=== PATIENT | female | born 1990 | race Caucasian/White ===

== ENCOUNTER 2016-06-29 19:58 | Emergency (ER) | payer OTHER ==
--- NOTE | 2016-06-29 21:00 | PROVIDER DOCUMENTATION ---
HPI-General Adult - General Chief Complaint: Hip Pain Stated Complaint: LT LEG PAIN, RASH Time Seen by Provider: 06/29/16 20:34 Source: patient Allergies/Adverse Reactions: Patient Allergies Allergy/AdvReac Type Severity Reaction Status Date / Time Penicillins Allergy Intermediate HIVES Verified 12/22/15 16:51 sulfamethoxazole Allergy HIVES Verified 06/29/16 22:45 [From Bactrim] trimethoprim [From Bactrim] Allergy HIVES Verified 06/29/16 22:45 Home Medications: Home Medication List Medication Instructions Recorded Confirmed Last Taken Type Albuterol Sulfate Inhaler 2 puff INH Q6H PRN PRN 07/03/13 06/29/16 08/11/14 07: 30 History [Ventolin Hfa] Citalopram [Celexa] 40 mg PO QHS 07/03/13 06/29/16 06/28/16 20:00 History Fluphenazine [Prolixin] 1 mg PO QHS 01/02/14 06/29/16 06/28/16 20:00 History Metoprolol [Lopressor] 50 mg PO DAILY 12/14/15 06/29/16 06/29/16 07:00 History Cholecalciferol (Vit D3) [Vitamin 1,000 unit PO BID 06/29/16 06/29/16 06/29/16 19:00 History D3] Clindamycin [Cleocin] 150 mg PO Q6HR #30 capsule 06/29/16 Unknown Rx LISINOpril [Prinivil] 20 mg PO QHS 06/29/16 06/29/16 06/28/16 20:00 History Ranitidine HCl [Zantac] 150 mg PO BID 06/29/16 06/29/16 06/29/16 19:00 History Tramadol [Ultram] 50 mg PO Q8HR #14 tablet 06/29/16 Unknown Rx - History of Present Illness -Gen Adult Nature of Presenting Problems: This pt presents to ED with c/o left hip pain x3 days that she describes as sharp when standing and aching when sitting. Denies any recent injury. She also reports a red rash on her right hip that started last night that she states is "burning and feels like it's going to bust." She has a hx of osteoporosis in which she had a right total hip replacement and fixation done on her left hip back in 2015. She also has a hx of cellulitis. Denies fever, chills, but reports body aches and "being really hot then cold." Denies any loss of bowel and bladder function. Location of Pain/Injury: reports: lower extremity (left and right hip), lower body (right and left hip). denies: head, face, mouth, neck, upper extremity, hand(s), abdomen, back, pelvis, genitalia, feet, upper body Pain Radiation: reports: legs (lower), legs (upper). denies: arm(s), back, buttocks, chest, epigastric, feet, groin, jaw, flank (L) (left groin pain radiating to her left upper thigh), LLQ, LUQ, neck, periumbilical, flank (R), RLQ, RUQ, shoulder(s), scrotal, sternal notch, suprapubic, urethral, vaginal Quality of Pain: reports: aching, burning (right hip), sharp. denies: cramping , dull, fullness, indigestion, pressure, stabbing, tearing, throbbing, tightness Severity: reports: moderate Onset/Duration: reports: 3 days ago Timing: reports: still present Context/Activities at Onset: reports: light activity, moderate activity, vigorous activity. denies: recent physical stress, recent trauma history, possible bad food, out of country travel, rest, sleep Modifying Factors: improves with: analgesics (does not improve with hydrocodone) , lying down, movement, other medication, palpation. worse with: antacids, breathing, cold/heat therapy, coughing, defecating, eating, exercise, immobilization, massage, rest, urinating, vomiting Associated Symptoms: reports: joint pain (left hip), muscle aches, trouble walking. denies: anxiety, arm pain, back/neck pain, chest pain, constipation, cough, diaphoresis, diarrhea, dizziness, EENT symptoms, fatigue, fever/chills, genitourinary problems, headaches, heartburn, loss of appetite, malaise, sinus congestion/drainage, nausea, rash, seizure, shortness of breath, sensory/motor loss, pain with inspiration, swelling/mass in abdomen, syncope, vomiting, weakness - Diabetes Related Context Context: denies: low blood sugar, high blood sugar, change in mental status, unresponsive, prior DKA hospitalization - Sickle Cell Pain Related Context Sickle Cell Pain Location: reports: none. denies: head, face, mouth, neck, chest, upper extremity, hand(s), abdomen, back, pelvis, genitalia, lower extremity, feet, upper body, lower body, generalized, other Review of Systems - Adult - REVIEW OF SYSTEMS - ADULT Constitutional: reports: see HPI, chills, night sweats. denies: fever, fatique , weight gain, weight loss Eyes: reports: see HPI. denies: discharge, dry eyes, decreased vision, blurred vision, double vision, eye pain, redness Ears, Nose, Mouth & Throat: reports: see HPI. denies: ear discharge, ear pain, hearing loss, tinnitus, sinus problem Cardiovascular: reports: see HPI. denies: chest pain, edema, irregular heart rate, orthopnea Respiratory: reports: see HPI. denies: chronic cough, cough, dyspnea on exertion, excessive sputum production Gastrointestinal: reports: see HPI. denies: abdominal pain, hematemesis, constipation, difficulty swallowing Genitourinary: reports: see HPI. denies: dysuria, discharge, frequency, frequent UTI's, hematuria Musculoskeletal: reports: see HPI, bone pain, joint pain, joint swelling. denies: back pain, frequent leg cramps, muscle aches, muscle weakness, neck pain Integumentary: reports: see HPI, other (erythema on the right hip). denies: hives, hair loss, itching, mole changes, nail changes Neurological: reports: see HPI. denies: ataxia, dizziness/vertigo, headache/ migraines, loss of balance, numbness, paresthesia, seizure, slurred speech Psychiatric: reports: see HPI. denies: anxiety, anti-depressant use, alcohol/ drug dependence, depression, panic attacks Endocrine: reports: see HPI. denies: change in skin pigment, excessive sweating , cold intolerance, heat intolerance, increased hunger Hematologic/Lymphatic: reports: see HPI. denies: easy bruising, lymphedema, prolonged bleeding Allergic/Immunologic: reports: see HPI. denies: allergic reactions, allergic rhinitis, asthma, food allergy, frequent infections, hay fever Past History - Adult - PAST MEDICAL HISTORY-ADULT Review of Records: reports: Old Records Reviewed, Nursing Assessment Review, Medications Reviewed, Social history reviewed & non-contributory. Major Childhood Illnesses: reports: denies history Cardiovascular: reports: arrhythmia (tachycardia), HTN Respiratory: reports: asthma Gastrointestinal: reports: denies history Obstetrical/Gynecological: reports: denies history LMP: 12/14/12 (PCOS) Genitourinary: reports: kidney stones, other (PCOS) Musculoskeletal: reports: intervertebral disc disease, other fractures, orthopedic injury, osteoporosis Neurological: reports: denies history Psychiatric: reports: anxiety, bipolar, depression Endocrine/Immune: reports: denies history Other Conditions: reports: denies history - PRIOR SURGERIES/PROCEDURES Surgical/Procedure History: reports: joint replacement (right total hip) - IMMUNIZATION STATUS Childhood Immunizations: See Nurse Assessment Flu Vaccine: See Nurse Assessment - FAMILY HISTORY Family History: reviewed, not pertinent - SOCIAL HISTORY Smoking: cigarettes, greater than 1 pack/day Provider spent 3-5 mins advising pt. on dangers of tobacco.: Discussed manners to quit use, and f/u contacts for add'l counseling. (discussed the need to stop smoking) Substance Use: none/never Alcohol Use Frequency: never Physical Exam-General - PHYSICAL EXAM-ADULT Initial Vital Signs Reviewed: Yes - CONSTITUTIONAL General Appearance: appears well, alert, no apparent distress, obese. negative : mild distress, moderate distress - EYES Eyes: PERRL/EOMI, pink conjunctivae. negative: EOM palsy, pale conjunctivae, photophobia, sclera injected - HEAD, EARS, NOSE, MOUTH & THROAT HENMT: normocephalic/atraumatic, moist mucous membranes, normal ENT inspection. negative: angioedema, dental decay, hearing deficit - NECK Neck: non-tender, full range of motion. negative: normal inspection, Brudzinski 's sign, C-spine tenderness, limited range of motion - RESPIRATORY Respiratory: chest non-tender, lungs clear, normal breath sounds, no pleuratic chest pain, no respiratory distress, no accessory muscle use. negative: decreased breath sounds, accessory muscle use, crackles, stridor, wheezing - CARDIOVASCULAR Cardiovascular: normal peripheral pulses, regular rate, rhythm, no edema, no gallop, no JVD. negative: no murmur, bradycardia, gallop/S4, friction rub - CHEST (BREASTS) Chest/Breast: deferred - GASTROINTESTINAL (ABDOMEN) Abdominal Exam: normal bowel sounds, non tender, no organomegaly, no pulsatile mass. negative: abdominal bruit, abnormal bowel sounds, hepatomegaly, spleenomegaly - GENITOURINARY Female Genitalia/Pelvic Exam: deferred Rectal Exam: deferred - LYMPHATIC Lymphatic: no adenopathy. negative: axilla node tender, cervical node tenderness, inguinal node tender, enlargement - MUSCULOSKELETAL Back Exam: normal inspection, no CVA tenderness, no vertebral tenderness. negative: CVA tenderness, decreased range of motion Extremity: normal range of motion, no pedal edema, no calf tenderness, normal capillary refill, swelling, tenderness, other (Bilateral hips) Peripheral Pulses: radial (R): 2+, radial (L): 2+, dorsalis-pedis (R): 2+, dorsalis-pedis (L): 2+ - SKIN Integumentary: normal color, normal turgor, warm/dry. negative: abrasion(s), blanching, cyanosis, diaphoresis - NEUROLOGIC Neurologic: visual effects editor II-XII nml as tested, grossly normal, no motor/sensory deficits . negative: abnormal cerebellar tests, abnormal visual effects editor II-XII, abnormal gait, aphasia, focal weakness - PSYCHIATRIC Psych/Mental Status: normal mood/affect, normal thought content, oriented x 3 Progress - PLAN OF CARE/RESULTS Progress/Plan/Lab Results: Discussed results and plan of care with patient. Patient agrees with plan and verbalizes understanding. Vital Signs Temp Pulse Resp BP Pulse Ox 06/29/16 20:24 98.1 F 110 H 16 165/94 100 Penicillins Allergy (Intermediate, Verified 12/22/15 16:51) HIVES sulfamethoxazole [From Bactrim] Allergy (Verified 06/29/16 22:45) HIVES trimethoprim [From Bactrim] Allergy (Verified 06/29/16 22:45) HIVES Albuterol Sulfate Inhaler [Ventolin Hfa] 2 puff INH Q6H PRN PRN 07/03/13 Citalopram [Celexa] 40 mg PO QHS 07/03/13 Fluphenazine [Prolixin] 1 mg PO QHS 01/02/14 Metoprolol [Lopressor] 50 mg PO DAILY 12/14/15 Cholecalciferol (Vit D3) [Vitamin D3] 1,000 unit PO BID 06/29/16 LISINOpril [Prinivil] 20 mg PO QHS 06/29/16 Ranitidine HCl [Zantac] 150 mg PO BID 06/29/16 I&O 06/28/16 06/29/16 06/30/16 06:59 06:59 06:59 Output Total 2029 Balance -2029 Laboratory 06/29/16 20:30 Urine Source CLEAN CATCH Urine Color YELLOW Urine Turbidity CLEAR Urine pH 6.0 Ur Specific [place] 1.025 Urine Protein TRACE A Ur Glucose (Stick) NEGATIVE Ur Ketones (Stick) NEGATIVE Urine Blood NEGATIVE Urine Nitrite NEGATIVE Urine Bilirubin NEGATIVE Urobilinogen Dipstick 3 A Urine Leukocytes TRACE A Urine WBC (Auto) <10 Urine RBC (Auto) <10 U Epithel Cells (Auto) >10 A Urine Bacteria (Auto) 2+ Orders Category Date Time Status XRAY PELVIS W/HIP 2-3VW LT [RAD] Stat Exams 06/29/16 21:38 Taken URINALYSIS [URINALYSIS] Stat Lab 06/29/16 20:30 Completed Clindamycin Med 06/29/16 23:13 Once 600 mg IM NOW ONE Hydrocodone/APAP 5 mg/325 mg [Sanders-5] Med 06/29/16 23:12 Discontinued 1 each PO NOW ONE Laboratory Tests 06/29/16 20:30 Urine Source CLEAN CATCH Urine Color YELLOW Urine Turbidity CLEAR Urine pH 6.0 Ur Specific [place] 1.025 Urine Protein TRACE A Ur Glucose (Stick) NEGATIVE Ur Ketones (Stick) NEGATIVE Urine Blood NEGATIVE Urine Nitrite NEGATIVE Urine Bilirubin NEGATIVE Urobilinogen Dipstick 3 A Urine Leukocytes TRACE A Urine WBC (Auto) <10 Urine RBC (Auto) <10 U Epithel Cells (Auto) >10 A Urine Bacteria (Auto) 2+ - XRAY 1 XRAY: Left XRAY Study: Pelvis, Hip XRAY Interpretation: No Fx (Noel) Departure - Departure Time of Disposition Order: 23:14 DIAGNOSIS: Cellulitis Qualifiers: Site of cellulitis: unspecified site Qualified Code(s): L03.90 - Cellulitis, unspecified Chronic pain Qualifiers: Chronic pain type: other chronic pain Qualified Code(s): G89.29 - Other chronic pain Disposition: HOME 01 Certified Medical Emergency: Emergent Condition: Stable Additional Instructions: Follow up with primary care physician Take medications as directed Return to ED for any concerns or worsening of symptoms ED Follow Up Instructions: You have been treated by a care provider in the Emergency Department. These instructions are being provided to you so you can have an understanding of how to care for yourself upon discharge. Upon discharge from the Emergency Department, you are responsible for making arrangements for follow-up care by a physician of your choice. Take all prescribed medications as directed. Return to the Emergency Department immediately for any new or worsening symptoms. You may call the Physician Referral phone number at [phone] to obtain a list of Physicians who are taking new patients. Prescriptions: Clindamycin [Cleocin] 150 mg PO Q6HR #30 capsule Tramadol [Ultram] 50 mg PO Q8HR #14 tablet Attestation - Physician/ TAWANNA Attestation Patient care was provided by Advanced Practice Provider:: Yes Advanced Practice Provider:: Krishna Cohen Advanced Practice Provider documentation review:: The Mid-level provider documentation, treatment plan and medical decision making was reviewed by the physician who agrees with all treatment and medical decision making by the MLP.
[2016-06-29 21:07] LABS: URINE MICRO REVIEW NEEDED? NO; URINE SOURCE CLEAN CATCH
[2016-06-29 21:14] LABS: BILIRUBIN URINE NEGATIVE (NEGATIVE); BLOOD URINE NEGATIVE (NEGATIVE); COLOR YELLOW; GLUCOSE URINE NEGATIVE (NEGATIVE); LEUKOCYTES URINE TRACE (NEGATIVE); NITRITE URINE NEGATIVE (NEGATIVE); PROTEIN URINE TRACE mg/dL (NEGATIVE); SP GRAVITY URINE 1.025; TURBIDITY URINE CLEAR (CLEAR); UROBILINOGEN URINE 3 mg/dL (NORMAL)
[2016-06-29 21:18] LABS: UR EPITHELIAL CELLS >10 /HPF (<10); URINE BACTERIA 2+ /HPF; URINE RBC <10 /HPF (<10); URINE WBC <10 /HPF (<10)
[2016-06-29] MEDS ORDERED: NORCO-5 PO ONE (23:12)
[2016-06-29] MEDS ORDERED: CLINDAMYCIN IM ONE (23:13)
--- NOTE | 2016-06-29 23:25 | Diag Imaging Result Document ---
PROCEDURE NAME: XRAY PELVIS W/HIP 2-3VW LT - 06/29/2016 PLAIN RADIOGRAPH OF THE PELVIS AND LEFT HIP FIVE VIEWS: COMPARISON: None available. FINDINGS: There has been a prior right hip arthroplasty and there is a medullary liliam on the left with evidence of a prior fracture at the proximal femur on the left that has healed. There is no evidence of acute fracture, dislocation, or intrinsic osseous lesion, otherwise. IMPRESSION: No evidence of acute osseous abnormality. Chronic changes as described.
[2016-06-30 00:14] VITALS: BP 138/82
== END 2016-06-30 00:13 | disposition home or self-care (01) ==
LOC: ED 19:58
DX: L03.90 Cellulitis, unspecified (principal); G89.29 Other chronic pain; M25.552 Pain in left hip; R21 Rash and other nonspecific skin eruption; M79.605 Pain in left leg; M79.1 Myalgia; R26.2 Difficulty in walking, not elsewhere classified; R68.83 Chills (without fever); R61 Generalized hyperhidrosis; M25.452 Effusion, left hip; L53.9 Erythematous condition, unspecified; M25.551 Pain in right hip; M81.0 Age-related osteoporosis without current pathological fracture; I10 Essential (primary) hypertension; J45.909 Unspecified asthma, uncomplicated; F41.9 Anxiety disorder, unspecified; F32.9 Major depressive disorder, single episode, unspecified; E66.9 Obesity, unspecified; F17.210 Nicotine dependence, cigarettes, uncomplicated; Z79.899 Other long term (current) drug therapy; Z71.6 Tobacco abuse counseling; Z96.641 Presence of right artificial hip joint; Z87.442 Personal history of urinary calculi
CPT/HCPCS: 81001; S0077

== ENCOUNTER 2016-08-26 23:58 | Inpatient (IN) ==
[2016-08-27 01:14] LABS: URINE MICRO REVIEW NEEDED? NO; URINE SOURCE CLEAN CATCH
[2016-08-27 01:15] LABS: BILIRUBIN URINE NEGATIVE (NEGATIVE); BLOOD URINE NEGATIVE (NEGATIVE); COLOR YELLOW; GLUCOSE URINE NEGATIVE (NEGATIVE); LEUKOCYTES URINE MODERATE (NEGATIVE); NITRITE URINE NEGATIVE (NEGATIVE); PROTEIN URINE NEGATIVE (NEGATIVE); SP GRAVITY URINE 1.017; TURBIDITY URINE TURBID (CLEAR); UROBILINOGEN URINE NORMAL (NORMAL)
[2016-08-27 01:17] LABS: UR EPITHELIAL CELLS <10 /HPF (<10); URINE BACTERIA 1+ /HPF; URINE CULTURE NEEDED? YES; URINE RBC <10 /HPF (<10); URINE WBC <10 /HPF (<10)
[2016-08-27] MEDS ORDERED: ZOFRAN IV ONE ×2 (01:18→03:13)
[2016-08-27] MEDS ORDERED: DILAUDID IV ONE ×2 (01:18→03:13)
[2016-08-27] MEDS ORDERED: TORADOL IV ONE (01:18)
[2016-08-27] MEDS ORDERED: NS 500 ML IV ONE (01:18)
[2016-08-27 01:38] LABS: MANUAL DIFF NEEDED? NO
[2016-08-27 01:40] LABS: BASO% 0.3 % (0.0-0.8); EOS# 0.13 X1000 (0.0-0.7); EOS% 0.8 % (0.0-10.0); HEMATOCRIT 40.6 % (37.0-47.0); HEMOGLOBIN 13.2 g/dL (12.0-16.0); IMM GRAN# 0.09 X1000 (0.0-0.04); IMM GRAN% 0.6 % (0.0-0.5); LYMPH# 2.09 X1000 (1.2-3.4); LYMPH% 13.4 % (20.5-51.1); MCH 28.2 PG (27-31); MCHC 32.5 g/dL (33-37); MCV 86.8 FL (81-99); MONO# 1.33 X1000 (0.11-0.59); MONO% 8.5 % (1.7-9.3); MPV 9.8 FL (7.4-10.4); NEUT% 76.4 % (42.2-75.2); PLT 359 X1000 (130-400); RBC 4.68 XMIL (4.2-5.4)
[2016-08-27 01:59] LABS: ALBUMIN 3.9 g/dL (3.5-5.0); TOTAL BILIRUBIN 0.11 mg/dL (0.20-1.00); TOTAL PROTEIN 6.7 g/dL (6.3-8.3)
--- NOTE | 2016-08-27 03:15 | PROVIDER DOCUMENTATION ---
This chart was entered by Keny Zamora Scribe, acting as scribe for Jose Hale MD. HPI-Abdominal Pain/GI Problem - General Chief Complaint: Flank Pain Stated Complaint: RT SIDE/BACK PAIN, NAUSEA Time Seen by Provider: 08/27/16 01:09 Source: patient Allergies/Adverse Reactions: Patient Allergies Allergy/AdvReac Type Severity Reaction Status Date / Time Penicillins Allergy Intermediate HIVES Verified 08/27/16 00:29 sulfamethoxazole Allergy HIVES Verified 08/27/16 00:29 [From Bactrim] trimethoprim [From Bactrim] Allergy HIVES Verified 08/27/16 00:29 Home Medications: Home Medication List Medication Instructions Recorded Confirmed Last Taken Type Albuterol Sulfate Inhaler 2 puff INH Q6H PRN PRN 07/03/13 08/27/16 06/12/15 08: 00 History [Ventolin Hfa] Citalopram [Celexa] 40 mg PO QHS 07/03/13 08/27/16 08/26/16 21:00 History Fluphenazine [Prolixin] 1 mg PO QHS 01/02/14 08/27/16 08/26/16 20:00 History Metoprolol [Lopressor] 50 mg PO DAILY 12/14/15 08/27/16 08/26/16 08:00 History Cholecalciferol (Vit D3) [Vitamin 1,000 unit PO BID 06/29/16 08/27/16 08/26/16 21:00 History D3] LISINOpril [Prinivil] 20 mg PO QHS 06/29/16 08/27/16 08/26/16 21:00 History Ranitidine HCl [Zantac] 150 mg PO BID 06/29/16 08/27/16 08/26/16 21:00 History - History of Present Illness-ABD Nature of Presenting Problems: Pt is a 26 yom who presents to ER with CC of RUQ pain that started this am and has gradually gotten worse. Pt also reports nausea without vomiting, the pain wraps around her right flank, and is worsened when she twists her body. Pt states that she has tried tylenol for the pain and has had mild to no relief, but states that she has had significant relief with a heating pad. Pt says that she has had renal stones before and that this pain resembles that of a renal stone, but the pain is too high up. Abdominal Pain Onset Location: reports: flank (right) Pain Radiation: reports: RUQ Quality of Pain: reports: aching, cramping Severity in ED: reports: moderate Onset/Duration: reports: this morning Timing: reports: still present, getting worse Associated Symptoms: reports: nausea, swelling/mass in abdomen (pt states that she feels bloated). denies: anxiety, arm pain, back/neck pain, chest pain, diaphoresis, diarrhea, fatigue, fever/chills, headaches, heartburn, joint pain, vomiting, weakness, trouble walking Review of Systems - Adult - REVIEW OF SYSTEMS - ADULT Constitutional: denies: chills, fever, fatique, night sweats, weight gain, weight loss Eyes: reports: no symptoms reported Ears, Nose, Mouth & Throat: reports: no symptoms reported Cardiovascular: denies: chest pain, irregular heart rate, palpitations, poor circulation, syncope Respiratory: denies: chronic cough, cough, dyspnea on exertion, excessive sputum production, shortness of breath, wheezing Gastrointestinal: reports: abdominal pain, nausea. denies: hematemesis, constipation, diarrhea, difficulty swallowing, frequent heartburn, poor appetite , rectal bleeding, vomiting Genitourinary: reports: no symptoms reported Musculoskeletal: reports: no symptoms reported Integumentary: reports: no symptoms reported Neurological: reports: no symptoms reported Psychiatric: reports: no symptoms reported Endocrine: reports: no symptoms reported Hematologic/Lymphatic: reports: no symptoms reported Allergic/Immunologic: reports: no symptoms reported All Other Systems: Reviewed and Negative Past History - Adult - PAST MEDICAL HISTORY-ADULT Review of Records: reports: Nursing Assessment Review, Medications Reviewed Cardiovascular: reports: arrhythmia (tachycardia), HTN Respiratory: reports: asthma Genitourinary: reports: kidney stones, other (PCOS) Musculoskeletal: reports: intervertebral disc disease, other fractures, orthopedic injury, osteoporosis Psychiatric: reports: anxiety, bipolar, depression - PRIOR SURGERIES/PROCEDURES Surgical/Procedure History: reports: joint replacement (right total hip) - IMMUNIZATION STATUS Childhood Immunizations: See Nurse Assessment Flu Vaccine: See Nurse Assessment - FAMILY HISTORY Family History: reviewed, not pertinent Physical Exam-General - PHYSICAL EXAM-ADULT Initial Vital Signs Reviewed: Yes - CONSTITUTIONAL General Appearance: appears well, alert, moderate distress, obese, anxious - EYES Eyes: PERRL/EOMI, pink conjunctivae - HEAD, EARS, NOSE, MOUTH & THROAT HENMT: normocephalic/atraumatic, moist mucous membranes, normal ENT inspection, TMs normal, pharynx normal. negative: pharyngeal erythema, tonsillar exudate, TM abnormal - NECK Neck: non-tender, full range of motion, supple, normal inspection. negative: C- spine tenderness, limited range of motion, lymphadenopathy - RESPIRATORY Respiratory: chest non-tender, lungs clear, normal breath sounds, no pleuratic chest pain, no respiratory distress, no accessory muscle use. negative: respiratory distress, decreased breath sounds, accessory muscle use, wheezing - CARDIOVASCULAR Cardiovascular: normal peripheral pulses, regular rate, rhythm, other ( hypertensive). negative: bradycardia, tachycardia, irregularly irregular - GASTROINTESTINAL (ABDOMEN) Abdominal Exam: normal bowel sounds, soft, no organomegaly, no pulsatile mass, tenderness (RUQ). negative: non tender, distended - MUSCULOSKELETAL Back Exam: normal inspection, no CVA tenderness, no vertebral tenderness. negative: CVA tenderness, decreased range of motion, ecchymosis, muscle spasm, swelling, vertebral tenderness Extremity: normal range of motion, non-tender, normal gait, normal inspection, no pedal edema, no calf tenderness, normal capillary refill. negative: deformity, erythema, inflammation, swelling, tenderness - SKIN Integumentary: normal color, normal turgor, warm/dry. negative: abrasion(s), diaphoresis, ecchymosis, erythema, laceration(s), swelling, tenderness, warm - NEUROLOGIC Neurologic: leaf fat scraper II-XII nml as tested, grossly normal, no motor/sensory deficits . negative: facial droop, focal weakness, motor weakness, sensory deficit - PSYCHIATRIC Psych/Mental Status: normal thought content, normal thought process, oriented x 3, disheveled. negative: normal mood/affect Progress - PLAN OF CARE/RESULTS Progress/Plan/Lab Results: Vital Signs - 8 hr 08/27/16 00:22 Temperature 98.1 F Pulse Rate 100 H Respiratory Rate 20 Blood Pressure 157/128 O2 Sat by Pulse Oximetry 95 Bedside Urine ED: Urine Bedside Start: 08/27/16 00:26 Freq: ORDERED Status: Active Activity Type Activity Date Activity User E-Sign Co-Sign Detail Recorded Client Recorded Date Recorded By Document 08/27/16 01:01 [id number] 08/27/16 01:02 [id number] 08/27/16 01:01 Point of Care [Bedside Point of Care] -Lot # [id number] - Results Negative -Control Line Visible? Yes Laboratory Results - last 24 hr 08/27/16 00:55 Urine Source CLEAN CATCH Urine Color YELLOW Urine Turbidity TURBID Urine pH 7.0 Ur Specific [place] 1.017 Urine Protein NEGATIVE Ur Glucose (Stick) NEGATIVE Ur Ketones (Stick) NEGATIVE Urine Blood NEGATIVE Urine Nitrite NEGATIVE Urine Bilirubin NEGATIVE Urobilinogen Dipstick NORMAL Urine Leukocytes MODERATE A Urine WBC (Auto) <10 Urine RBC (Auto) <10 U Epithel Cells (Auto) <10 Urine Bacteria (Auto) 1+ Orders Category Date Time Status ED: Urine Bedside ORDERED Care 08/27/16 00:26 Active UA Reflex [URINALYSIS W/POSS RFLX CULT] [URINALYSIS] Lab 08/27/16 00:55 Completed Stat Result Diagrams: 08/27/16 01:25 08/27/16 01:25 Departure - Departure Time of Disposition Decision: 03:14 DIAGNOSIS: Biliary colic Pancreatitis Qualifiers: Chronicity: acute Pancreatitis type: biliary Acute pancreatitis complication: no infection or necrosis Qualified Code(s): K85.10 - Biliary acute pancreatitis without necrosis or infection Disposition: ADMITTED INPATIENT 09 Certified Medical Emergency: Emergent Condition: Fair Referrals and Follow-Ups: None,PCP [Primary Care Provider] - - Critical Care Note This patient required my direct & personal management of CC.: No This chart was documented by the indicated scribe, (Keny Zamora Scribe) and accurately reflects the services I performed and decisions made by me, Jose Schulte MD, as attested by the provider's signature.
[2016-08-27] MEDS ORDERED: APRESOLINE IV ONE (04:15)
--- NOTE | 2016-08-27 05:13 | HISTORY AND PHYSICAL ---
CHIEF COMPLAINT: Abdominal pain. HISTORY OF PRESENTING ILLNESS: A 26-year-old female with a history of asthma and hypertension who had presented to the emergency department with a 1-day history of having abdominal pain. She states the pain was more in the right upper quadrant, radiating to her right flank. She states that she was nauseated. Patient was evaluated in the ER and due to her persistent pain, it was thought we would place her for observation for further evaluation and management. At the time of my examination, she had denied any headaches, visual changes, fevers, chills, chest pain, shortness of breath, hemoptysis, melena, or weight changes but complained of abdominal/flank pain on her right side. PAST MEDICAL HISTORY: Includes polycystic ovarian syndrome, asthma, Serafin's disease, hypertension, history of necrotizing fasciitis. PAST SURGICAL HISTORY: Right hip replacement, left tibial fixation, kidney stone extractions. ALLERGIES: Penicillin and Bactrim. CURRENT MEDICATIONS: Listed in the MAR. SOCIAL HISTORY: Ten pack year history of smoking. Admits to social alcohol use. Denies any illicit drug use. FAMILY HISTORY: Positive for coronary artery disease in father. REVIEW OF SYSTEMS: Twelve point review of systems as listed in the HPI. Other systems negative. PHYSICAL EXAMINATION: GENERAL: Cooperative, friendly, obese female. She is resting comfortably. VITAL SIGNS: Temperature 98.1 degrees, pulse 100, respirations 20, blood pressure 157/128. She is saturating 95% on room air. HEENT: Atraumatic, normocephalic. Extraocular movements intact. PERRLA. NECK: No masses. CHEST: Clear to auscultation. CARDIOVASCULAR: Regular rate and rhythm. ABDOMEN: Soft. Right upper quadrant tenderness. EXTREMITIES: No edema. NEUROLOGIC: She is awake, alert, oriented x3. : No bladder distention. SKIN: Warm. LABORATORIES AND STUDIES: UA shows moderate leukocytes and +1 bacteria. Sodium 143, potassium 4, chloride 102, CO2 is 27, BUN is 17, creatinine is 1.1, glucose is 97. WBCs 15.63, hemoglobin 13.2, hematocrit 40.6, platelets 359,000. ASSESSMENT: A 26-year-old, obese female who presented to the emergency department with a 1-day history of having abdominal pain. Due to her persistent pain, it was thought that she would need hospitalization for further management. 1. Right upper quadrant/left flank pain. 2. Asthma. 3. Hypertension. PLAN: 1. We will admit patient for observation. 2. We will schedule patient for an ultrasound of the abdomen at the right upper quadrant. 3. We will continue with Everett hernandez. 4. We will monitor blood pressure and resume antihypertensive agents. 5. Put patient on DVT prophylaxis with GREG figueroa. 6. We will continue to follow and reassess. cc: Milo Marie MD
--- NOTE | 2016-08-27 05:28 | HISTORY AND PHYSICAL ---
ADDENDUM: ASSESSMENT AND PLAN: Suspected urinary tract infection. We will check urine cultures and start patient on intravenous antibiotics. cc: Milo Marie MD
[2016-08-27] MEDS: NS 1,000 ML IV SCH ×2 (06:08→16:54)
[2016-08-27] MEDS: LEVAQUIN 500 MG/D5W 500 MG/100 ML IVPB IV SCH (06:08)
[2016-08-27] MEDS: DILAUDID IV PRN ×6 (06:16→22:47)
[2016-08-27] MEDS ORDERED: ZANTAC PO SCH (09:00)
--- NOTE | 2016-08-27 09:16 | Diag Imaging Result Document ---
PROCEDURE NAME: CT ABD/PELVIS W/ IV CONT ONLY - 08/27/2016 CT OF THE ABDOMEN WITH INTRAVENOUS CONTRAST AND CLARITY: The current study is compared with that of 12/22/2015. FINDINGS: The opacities which were demonstrated previously in the right middle lobe have resolved. There is stable pleural thickening in the left lateral costophrenic sulcus. The appearance of the pancreas has not changed significantly since the previous study. The liver, spleen and adrenal glands are also stable in appearance. The gallbladder is contracted. There are apparent caliceal stones in both kidneys. While this is a contrast examination and contrast in the calices may obscure stones, there were multiple calyceal stones at the time of the noncontrast study of 07/20/2014. There is a fat-containing umbilical hernia. There is inflammatory change surrounding this collection. The possibility of some fat necrosis cannot be excluded. There is a larger quantity of herniated peritoneal fat than was the case at the time of the previous study. There is some gas and stool in the colon. The small bowel is not distended. There is no evidence of significant adenopathy. CT OF THE PELVIS WITH INTRAVENOUS CONTRAST: FINDINGS: There is no evidence of appendicitis. There has been internal fixation of the left femur and a total hip arthroplasty on the right. There is evidence of previous fracture of the ischiopubic ramus on the left. There are no masses or abnormal fluid collections. Given the beam- hardening artifact from the orthopedic hardware, there is no evidence of a definite abnormality in the urinary bladder. There is what appears to be postsurgical change in the right groin. IMPRESSION: No evidence of acute pancreatitis. Umbilical fat herniation with apparent fat necrosis. The hernia and the inflammatory change in the herniated fat both appear to be worse than on 12/22/2015.
[2016-08-27] MEDS: LOPRESSOR PO SCH (09:20)
--- NOTE | 2016-08-27 10:44 | Diag Imaging Result Document ---
PROCEDURE NAME: US ABDOMEN-COMPLETE - 08/27/2016 ULTRASOUND ABDOMEN COMPLETE, 08/27/2016: COMPARISON: CT abdomen and pelvis, 08/27/2016. FINDINGS: There is a tiny polyp in the gallbladder measuring 4 mm. The liver, pancreas and spleen are normal. There are small shadowing nonobstructing renal stones bilaterally stable from prior CTs. No hydronephrosis. Renal sizes are normal. No abnormal fluid collections. The common bile duct measures 5 mm. Aorta, IVC, and main portal vein are patent. IMPRESSION: Tiny polyp in the gallbladder. Small bilateral renal stones. No change from prior exams.
[2016-08-27] MEDS ORDERED: TORADOL IV SCH (13:45)
[2016-08-27] MEDS ORDERED: PROTONIX IV SCH (13:45)
[2016-08-27] MEDS: OFIRMEV 1000 MG/ISOTONIC SOLN 1,000 MG/100 ML BOTTLE IV SCH ×2 (15:33→22:37)
--- NOTE | 2016-08-27 21:06 | CONSULTATION ---
DATE OF CONSULTATION: 08/27/2016 REFERRING PHYSICIAN: Ken Tapia M.D. PRIMARY CARE PROVIDER: None. INDICATIONS FOR CONSULTATION.: 1. Right upper quadrant pain. 2. Nausea. 3. Heartburn. 4. History of peptic ulcer disease. HISTORY OF PRESENT ILLNESS: The patient is a 26-year-old, white female, who presented to the emergency room for evaluation of abdominal pain. She describes severe right upper quadrant pain that radiated into her right flank. It was associated with nausea but no vomiting. She had severe abdominal pain that reached a point of 8 to 9/10. Because of the persistent abdominal pain, she was admitted for further evaluation. She notes a history of gastric ulcers approximately 9 years ago on endoscopy. She has not been followed by GI since her ulcers were found 9 years ago. She does have [place]'s disease and is followed at [facility] in the Endocrine Department. She denies fever, chills, chest pain, vomiting, melena, hematochezia, and change in bowel habits. Historically, she has constipation but notes an occasional episode of diarrhea. Her stools tend to go back and forth between constipation and diarrhea. PAST MEDICAL HISTORY: 1. Polycystic ovarian syndrome. 2. Asthma. 3. Serafin's syndrome. 4. Hypertension. 5. Necrotizing fasciitis. 6. Central morbid obesity. 7. Arthritis. 8. Kidney stones. 9. Umbilical hernia. 10. Multiple fractures thought secondary to her Serafin's disease. PAST SURGICAL HISTORY: 1. Right hip replacement. 2. Left tibial fixation. 3. Left hip replacement. 4. Kidney stone extraction. MEDICATION ALLERGIES: 1. Penicillin. 2. Bactrim. HOME MEDICATIONS: 1. Zantac. 2. Lopressor. 3. Prinivil. 4. Prolixin. 5. Celexa. 6. Vitamin D. 7. Ventolin inhaler. SOCIAL HISTORY: The patient has a [id number] smoking history. She uses alcohol on a social basis. She denies illicit drug use. FAMILY HISTORY: Positive for coronary artery disease. There is no history of gastric or colon cancer. REVIEW OF SYSTEMS: Remarkable for right upper quadrant and right flank pain, heartburn,, nausea and a history of peptic ulcer disease. PHYSICAL EXAMINATION: General: On examination, she is a morbidly obese white female in no acute distress. Vital Signs: Blood pressure is 121/68, pulse 67, respirations 17, temperature of 98.1 degrees. HEENT: Negative for jaundice. Her conjunctivae are normal. Her oropharyngeal mucosa. membranes appear normal. Pulmonary Examination: Lungs are clear to auscultation with normal respiratory effort. Cardiovascular Examination: Reveals regular rate and rhythm with no murmurs, gallops, or rubs. Abdominal Examination: Reveals normoactive bowel sounds. The abdomen is soft with moderate right upper quadrant tenderness but no rebound or guarding. There is central adiposity. Extremities: Bilaterally are negative for cyanosis, clubbing, or edema. Neurologic Examination: She is alert and oriented x3 with appropriate mood, affect, and memory. Pelvis: Examination of the pelvis was limited by her orthopedic hardware. She has an internal fixation of the left femur as well as a right total hip arthroplasty. She also has a previous fracture of the ischial pubic ramus on the left. OBJECTIVE DATA: Remarkable for a urinalysis with leukocytosis and bacteremia consistent with urinary tract infection. Her hemoglobin is 13.2 with hematocrit of 40.6, and a white count of 15.63. She has 359,000 platelets. Sodium is 143, potassium 4.0, chloride 102, CO2 27, BUN 17, creatinine 1.1 with a glucose of 97. Calcium is 9.0, total bilirubin 0.11, AST 20, ALT 19, alkaline phosphatase 73, total protein 6.7, albumin 3.9, and a lipase of 93. CT scan was personally reviewed. The official interpretation reveals no evidence of acute pancreatitis. She does have an umbilical hernia with fat herniation and fat necrosis. The hernia and inflammatory changes appear to be worse than on a previous CT scan. She had multiple kidney stones present. The gallbladder was contracted but there were no masses or evidence of acute cholecystitis. There is stable pleural thickening at the left lateral costophrenic sulcus with stool and gas in the colon. The small bowel was not distended. There was no evidence of significant lymphadenopathy. IMPRESSION: 1. Right upper quadrant pain. 2. Nausea. 3. Heartburn. 4. History of peptic ulcer disease. 5. Urinary tract infection with leukocytosis. 6. Serafin's disease. RECOMMENDATIONS: 1. The patient continues to have nausea but no vomiting as well as right upper quadrant pain. Her abdominal ultrasound revealed a tiny gallbladder polyp but no other acute findings to account for her symptoms. There are also bilateral kidney stones which again did not account for her symptoms. Therefore, I recommend that she undergo an EGD to assess for recurrent peptic ulcer disease. 2. I would also check a HIDA scan to assess for chronic cholecystitis. 3. I would continue Protonix but increase to q.12 hours. 4. Consent was obtained. All questions were answered. 5. Because the patient has asthma as well as history of peptic ulcer disease, I will discontinue the IV Toradol. 6. Additional recommendations to follow based on her clinical course and our endoscopic findings. cc: MD Ken Agee MD MTDJuliet
[2016-08-27] MEDS: CELEXA PO SCH (22:39)
[2016-08-27] MEDS: PRINIVIL PO SCH (22:40)
[2016-08-28] MEDS: DILAUDID IV PRN ×4 (01:49→13:58)
[2016-08-28] MEDS: OFIRMEV 1000 MG/ISOTONIC SOLN 1,000 MG/100 ML BOTTLE IV SCH ×4 (01:51→19:49)
[2016-08-28] MEDS: PROLIXIN PO SCH ×3 (01:57→21:09)
[2016-08-28] MEDS: NS 1,000 ML IV SCH ×4 (01:58→22:24)
[2016-08-28] MEDS: PROTONIX IV SCH ×2 (01:59→15:07)
[2016-08-28] MEDS: SODIUM CHLORIDE 0.9% INJ SCH ×2 (02:00→15:07)
[2016-08-28] MEDS: LEVAQUIN 500 MG/D5W 500 MG/100 ML IVPB IV SCH (05:48)
[2016-08-28 06:33] LABS: MANUAL DIFF NEEDED? NO
[2016-08-28 06:56] LABS: AGAP 12; BUN 16 mg/dL (8-22); CALCIUM 8.7 mg/dL (8.8-10.2); CHLORIDE 108 mmol/L (98-107); COSMO 286; POTASSIUM 3.9 mmol/L (3.5-5.1); SODIUM 143 mmol/L (136-145); TCO2 23 mmol/L (25-35)
[2016-08-28 06:59] LABS: BASO% 0.3 % (0.0-0.8); EOS# 0.11 X1000 (0.0-0.7); EOS% 0.9 % (0.0-10.0); HEMATOCRIT 37.7 % (37.0-47.0); HEMOGLOBIN 11.7 g/dL (12.0-16.0); IMM GRAN# 0.05 X1000 (0.0-0.04); IMM GRAN% 0.4 % (0.0-0.5); LYMPH% 16.3 % (20.5-51.1); MCH 27.3 PG (27-31); MCV 88.1 FL (81-99); MONO# 0.91 X1000 (0.11-0.59); MONO% 7.4 % (1.7-9.3); MPV 10.2 FL (7.4-10.4); NEUT% 74.7 % (42.2-75.2); PLT 317 X1000 (130-400); RBC 4.28 XMIL (4.2-5.4)
[2016-08-28] MEDS ORDERED: DIPRIVAN 1% ONE (09:24)
[2016-08-28] MEDS ORDERED: VERSED ONE (09:24)
[2016-08-28] MEDS: LOPRESSOR PO SCH (10:12)
[2016-08-28] MEDS ORDERED: LR 1,000 ML ONE (10:31)
[2016-08-28] MEDS ORDERED: EXTENSION SET 32 IN 4522 ONE (10:31)
[2016-08-28] MEDS ORDERED: ANESTHESIA PB SET 88 IN 5742 ONE (10:31)
--- NOTE | 2016-08-28 12:36 | OPERATIVE NOTE ---
PROCEDURE DATE: 08/28/2016 REFERRING PHYSICIAN: Ken Tapia M.D. INDICATIONS FOR PROCEDURE: 1. Right upper quadrant pain. 2. Nausea. 3. Heartburn. 4. History of peptic ulcer disease. PROCEDURE PERFORMED: Esophagogastroduodenoscopy with biopsy. CONSENT: Informed consent was obtained from the patient prior to the procedure. The risks, benefits, and alternatives were discussed. MEDICATION: The patient received monitored anesthesia care. PERFORMING PHYSICIAN: Beverley Vu M.D. ASSISTANTS: 1. ST. Cynthia 2. Leilani Hu RN. 3. Maryam Ibanez CRNA. 4. Edwin Hardy M.D. (Anesthesia). COMPLICATIONS: There were no complications. ESTIMATED BLOOD LOSS: 1 to 2 mL. SPECIMENS REMOVED: 1. Duodenal biopsy. 2. Gastric biopsy. FINDINGS: After sedation was achieved, the upper endoscope was inserted to the 2nd portion of the duodenum. The hypopharynx and tubular esophagus appeared normal to the distal esophagus. There were no varices. There was no Marks mucosa. The GE junction appeared irregular at 40 cm. There was superficial ulceration with streaking erosions, consistent with grade B erosive esophagitis. In the gastric lumen, there was greater than 200 mL of retained gastric fluid. There was erosive gastritis visualized after evacuation of the fluid. In the fundus, there was gastritis but no other findings. The pylorus was patent. Please note that there was active bile reflux throughout the entire procedure. The pylorus was inflamed but otherwise patent. In the duodenal bulb and 2nd portion of the duodenum, there was duodenitis. After the exam was complete, biopsies were taken from the duodenal and gastric mucosa. The lumen was decompressed and the scope was removed without incident. IMPRESSION: 1. Grade B erosive esophagitis. 2. Gastric stasis. 3. Erosive gastritis. 4. Active bile reflux. 5. Duodenitis. RECOMMENDATIONS: 1. Await biopsy results. 2. Continue Protonix 40 mg IV q.12 hours. 3. Add Carafate 1 g 4 times a day for 12 weeks and then stop. 4. Check a HIDA scan as our exam today did not account for right upper quadrant pain. 5. In addition, I would check a gastric emptying study as she has evidence of gastric stasis. 6. She continues to have right upper quadrant pain and constipation. I will give her trial of Bentyl 10 mg 4 times a day as I suspect a component of irritable bowel syndrome. 7. If her pain continues, we can consider performing a colonoscopy which can be done as an outpatient. 8. We will have the patient return to clinic in 4 weeks to assess interval progress. cc: MD Ken Agee MD MTDD
--- NOTE | 2016-08-28 15:34 | PROGRESS NOTE ---
DATE: 08/28/2016 Today Ms. Patel refers to be doing fine. She just finished her procedure, an esophagogastroduodenoscopy without any complications. OBJECTIVE: Vital signs: Blood pressure is 161/98, pulse of 75, respirations 20 , temperature is 97.8 degrees. General Exam: Ms. Patel is a 36-year-old morbidly obese, female, with a BMI of 50.4. She is in bed, no seemingly distress. HEENT: Mucosa is pink and moist. Anicteric. Acyanotic. Neck: Supple. Chest: Clear. Cardiovascular: Regular rate and rhythm. Abdomen: Soft. There is a right side paraumbilical hernia which is easily reducible. There is also some tenderness to the right upper quadrant. Extremities: No pedal edema. CUSTOMER SERVICE REP: Patient is alert and oriented x4. There is no focal neurological deficit. LABORATORY DATA: WBC is 12.28, hemoglobin is 11.7, platelet count of 317,000. Chemistries reviewed, completely normal. EGD shows grade B erosive esophagitis, gastric stasis, erosive gastritis, active bile reflux. ASSESSMENT: 1. Right upper quadrant pain. Etiology is still unclear. Patient does have an ultrasound which reveals gallbladder polyp. Will consult Surgery to review the patient and make some recommendations and see if that is the cause of the pain. 2. Gastritis with duodenitis on EGD. Will follow up with further recommendations from GI. 3. Moderate constipation on CT scan. We will start the patient on MiraLAX and also I would discontinue the patient's narcotics since I think this could be potentially causing some of her problems. 4. Morbid obesity. Noted. Patient has been upset that her narcotics have been changed. I think we have to discontinue it all together due to the constipation and the fact that her studies have been unremarkable for any acute pathology needing opioids. cc: Femi Valero MD [facility]
[2016-08-28] MEDS ORDERED: BENTYL PO SCH (16:00)
[2016-08-28] MEDS: BENTYL PO SCH ×2 (19:49→21:09)
[2016-08-28] MEDS: XANAX PO PRN (19:49)
[2016-08-28] MEDS: CELEXA PO SCH ×2 (19:49→21:09)
[2016-08-28] MEDS: CARAFATE LIQUID PO SCH ×2 (19:49→20:37)
[2016-08-28] MEDS: MIRALAX PO SCH (19:49)
[2016-08-28] MEDS: PRINIVIL PO SCH ×2 (19:50→21:09)
[2016-08-28] MEDS: ULTRAM PO PRN (20:37)
[2016-08-29] MEDS: OFIRMEV 1000 MG/ISOTONIC SOLN 1,000 MG/100 ML BOTTLE IV SCH ×2 (01:07→09:24)
[2016-08-29] MEDS: CARAFATE LIQUID PO SCH ×2 (01:07→09:28)
[2016-08-29] MEDS: ULTRAM PO PRN ×2 (02:00→09:23)
[2016-08-29] MEDS: SODIUM CHLORIDE 0.9% INJ SCH (03:56)
[2016-08-29] MEDS: PROTONIX IV SCH (03:56)
[2016-08-29] MEDS: LEVAQUIN 500 MG/D5W 500 MG/100 ML IVPB IV SCH (04:55)
[2016-08-29 05:06] VITALS: BP 155/104
[2016-08-29] MEDS ORDERED: APRESOLINE PO SCH (09:00)
[2016-08-29] MEDS: XANAX PO PRN (09:23)
[2016-08-29] MEDS: MIRALAX PO SCH (09:24)
[2016-08-29] MEDS: LOPRESSOR PO SCH (09:24)
[2016-08-29] MEDS: BENTYL PO SCH (09:24)
--- NOTE | 2016-08-29 09:58 | Diag Imaging Result Doc PS360 ---
EXAM: HIDA SCAN W/ EJECTION FRACTION HISTORY: RUQ pain and nausea COMMENT: There is activity on the seventh image in the gallbladder. The patient was injected with 4.7 mCi of technetium 99mete. Following administration of a fatty meal consisting of 8 ounces of intra or the gallbladder ejects 35% of the activity. This is at the lower limits of normal. IMPRESSION: No evidence of acute cholecystitis. Borderline ejection fraction. Electronically signed by Rupesh Juan 08/29/2016 9:55 AM
[2016-08-29] MEDS ORDERED: PRILOSEC PO SCH (21:00)
--- NOTE | 2016-08-30 07:26 | DISCHARGE SUMMARY ---
ADMISSION DATE: 08/27/2016 DISCHARGE DATE: 08/29/2016 INVASIVE PROCEDURES DONE DURING THIS ADMISSION: EGD was done by Dr. Vu. Findings were grade 1 erosive esophagitis, erosive gastritis, active bile reflux, and duodenitis. IMAGING STUDIES OF SIGNIFICANCE: A CT scan of the abdomen and pelvis was done which shows some gas and stool in the colon. No evidence of adenopathy. There was no evidence of acute pancreatitis. There was some umbilical fat herniation. A HIDA scan was done which did not show evidence of acute cholecystitis. DISPOSITION: Home. FOLLOWUP: 1. Dr. Vu. 2. Dr. Camp. CONSULTATION DURING THIS ADMISSION: 1. GI was consulted. Patient was seen by Dr. Vu. 2. Surgery was consulted. The patient was not seen by surgery until she left. ADMISSION DIAGNOSES: 1. Abdominal right upper quadrant/flank pain. 2. Hypertension. DISCHARGE DIAGNOSES: 1. Right upper quadrant pain. Etiology unclear. Ultrasound revealed gallbladder polyps. However, HIDA scan was negative for acute cholecystitis. 2. Gastritis and duodenitis on esophagogastroduodenoscopy. 3. Moderate constipation on CT scan. 4. Morbid obesity. 5. Umbilical hernias. 6. Hypertension. 7. Morbid obesity with a body mass index of 50.4. DISCHARGE MEDICATIONS: 1. Citalopram 40 mg at bedtime. 2. Metoprolol 50 mg daily. 3. Lisinopril 20 mg at bedtime. 4. Hydralazine 25 mg 3 times per day. 5. MiraLAX 17 g p.o. daily. 6. Carafate 1 g daily. 7. Tramadol 50 mg q6hr p.r.n. 8. Bentyl 10 mg q.4 times daily. 9. Omeprazole 40 mg b.i.d. PRESENTING COMPLAINT: Abdominal pain. HISTORY OF PRESENTING COMPLAINT: Ms. Patel is a 26-year-old, female with a past medical history of hypertension who presented to the emergency department because of right upper quadrant pain associated with some nausea. The patient was evaluated initially and admitted for further medical care. HOSPITAL COURSE: During the hospital stay, the patient was evaluated by GI. An EGD was done which revealed duodenitis and some erosive gastritis. Because of the right upper quadrant pain, a HIDA scan was done. It was not consistent with acute cholecystitis. However, on the ultrasound of the right upper quadrant, there was gallbladder polyps. A surgery consult was put in both for the gallbladder polyps and also for the umbilical hernia. However, the patient did not get to be seen until she got discharged. She is advised to follow up with Dr. Camp on an outpatient basis since we do not think this was an emergency to be taken care of in hospital. There was also an order from the GI for patient to do a gastric empty study test but I think she can, as well, do this test on outpatient basis. The patient is clinically stable. She was actually demanding for more pain medications while all of the studies were completely normal. She is going to go home in a very stable condition and she will follow up with both Dr. Vu and Dr. Camp. At the time of discharge, patient's vitals were stable. Blood pressure is 155/104, pulse of 86, respirations are 16, temperature is 97.7 degrees. Time spent for discharge was 37 minutes. cc: Femi Valero MD MTDD
== END 2016-08-29 13:46 | disposition home or self-care (01) ==
LOC: 3N 23:58 → ED 23:58 → SUATTDRO 08-27 04:57
PROVIDERS: ATTEND Internal Medicine